=== PATIENT | male | born 1985 ===

== ENCOUNTER → 2017-06-11 | Outpatient (CLI) | payer SELFPAY ==
--- NOTE | 2017-06-11 15:25 | RADIOLOGY IMAGING REPORT ---
FACILITY: [facility] PATIENT NAME: Luis Reynaga : 1985 MR: [id number] V: [id number] EXAM DATE: ORDERING PHYSICIAN: ALIVIA PALOMINO TECHNOLOGIST[place] [facility] [place] : 1985 Visit/Account:[id number] Date of Sevice: 06/11/2017 Exam type: CHEST PA AND LAT History: Left rib fracture, deformity, right mid back pain Comparison: None. Findings: The lungs are free of acute effusions infiltrates or edema. The cardiac silhouette is normal in size . The trachea is in midline. No definite rib fractures identified although the ribs are not entirel y included on this PA and lateral chest. A tiny round metallic density projects over the proximal le ft arm IMPRESSION: 1. No acute cardiac primary process is seen No definite rib fracture seen although the ribs are not entirely included on this PA and lateral ches t. A rib series may be helpful depending upon the degree of clinical concern Report Dictated By: Cornelia Benites MD at 06/11/2017 3:19 PM Report E-Signed By: Cornelia Benites MD at 06/11/2017 3:20 PM WSN:[email or web address]
== END ==
LOC: RAD 14:09 → EDSEX 14:09
PROVIDERS: ATTEND Family Medicine
DX: R91.8 Other nonspecific abnormal finding of lung field (principal)
CPT/HCPCS: 71046

== ENCOUNTER → 2017-11-11 | Outpatient (REF) ==
--- NOTE | 2017-11-11 14:04 | RADIOLOGY IMAGING REPORT ---
FACILITY: [facility] [place] PATIENT NAME: Luis Reynaga : 1985 MR: [id number] V: [id number] EXAM DATE: ORDERING PHYSICIAN: MIKE FINNEGAN TECHNOLOGIST: Location: [facility] Patient: Luis Reynaga : 1985 Visit/Account:[id number] Date of Sevice: 11/11/2017 Left ankle, two views. HISTORY: Twist injury, lateral pain. COMPARISON: None. Moderate soft tissue swelling is present in the lateral aspect of the ankle. A 3 mm chronic appearin g calcific density projects on the soft tissues lateral to the lateral malleolus. The talofibular lacy int is partially obscured. No widening of the ankle mortise. The bones and joints are otherwise unr emarkable. IMPRESSION: Lateral soft tissue swelling. Calcification along the lateral malleolus, probably chronic. Otherwise negative for acute bony abnormality. Report Dictated By: Hal Escobar MD at 11/11/2017 1:58 PM Report E-Signed By: Hal Escobar MD at 11/11/2017 2:00 PM WSN:[email or web address]
--- NOTE | 2017-11-11 14:54 | RADIOLOGY IMAGING REPORT ---
[facility] PATIENT NAME: Luis Reynaga : 1985 MR: [id number] V: [id number] EXAM DATE: ORDERING PHYSICIAN: MIKE FINNEGAN TECHNOLOGIST: Location: [facility] Patient: Luis Reynaga : 1985 Visit/Account:[id number] Date of Sevice: 11/11/2017 THORACIC SPINE 2 VIEW HISTORY: Fall COMPARISON: None FINDINGS: 3 views of the thoracic spine were obtained. The visualized vertebral bodies exhibit normal height without spondylolisthesis. No significant dege nerative changes. There is no evidence of paraspinal abnormality. The pedicles are unremarkable in ap pearance. IMPRESSION: No acute fracture or spondylolisthesis. Report Dictated By: Moses Morel at 11/11/2017 2:49 PM Report E-Signed By: Moses Morel at 11/11/2017 2:50 PM WSN:[id number]
== END ==
LOC: RAD 10:22
PROVIDERS: ATTEND Nurse Practitioner
DX: M54.6 Pain in thoracic spine (principal); M25.572 Pain in left ankle and joints of left foot; X50.1XXA Overexertion from prolonged static or awkward postures, initial encounter
CPT/HCPCS: 72070